=== PATIENT | male | born 1985 | race African-American/Black ===

== ENCOUNTER 2019-01-13 21:21 | Emergency (ER) | payer OTHER ==
[~2019-01-13] VITALS: Ht 180.3 cm; Wt 115.7 kg
[2019-01-13 21:27] VITALS: BP 110/72
--- NOTE | 2019-01-13 21:47 | PHYS DOC ---
Adult General Chief Complaint Chief Complaint: SHOULDER INJURY HPI HPI Patient is a 33 year old male with no significant medical history who presents to the ED today complaining of moderate right shoulder pain that began today after he fell playing football patient denies any loss of consciousness. Desc ribes the pain as throbbing and worse on range of motion. He states the pain is radiating to the neck. (MIKE BRANTLEY APRN) Review of Systems Review of Systems Constitutional: Denies fever or chills [] Musculoskeletal: Reports right shoulder pain Integument: Denies rash or skin lesions [] Neurologic: Denies headache, focal weakness or sensory changes [] All other systems were reviewed and found to be within normal limits, except as documented in this note. (MIKE BRANTLEY APRN) Current Medications Current Medications Current Medications Medications (Trade) Dose Ordered Sig/Amina Start Time Stop Time Status Last Admin Dose Admin Acetaminophen/ Hydrocodone Bitart (Lortab 5/325) 2 tab 1X ONCE 01/13/19 22:30 01/13/19 22:31 DC 01/13/19 22:28 2 TAB Naproxen (Naprosyn) 500 mg 1X ONCE 01/13/19 22:30 01/13/19 22:31 DC 01/13/19 22:29 500 MG (ANT TSAI MD) Allergies Allergies Allergies Coded Allergies Type Severity Reaction Last Updated Verified No Known Drug Allergies 01/13/19 No (ANT TSAI MD) Physical Exam Physical Exam Constitutional: Well developed, well nourished, no acute distress, non-toxic appearance. [] Skin: Warm, dry, no erythema, no rash. [] Back: No tenderness, no CVA tenderness. [] Extremities: Right shoulder with no obvious deformity. Tenderness diffusely on the right anterior shoulder as well as clavicle. Full range of motion to the right shoulder. Adequate radial, medial, ulnar sensation to the right upper extremity. +2 right radial pulse. Cap refill less than 2 seconds the right fingers. Neurologic: Alert and oriented X 3, normal motor function, normal sensory function, no focal deficits noted. [] Psychologic: Affect normal, judgement normal, mood normal. [] (MIKE BRANTLEY APRN) Current Patient Data Vital Signs Vital Signs Date Time Temp Pulse Resp B/P (MAP) Pulse Ox O2 Delivery O2 Flow Rate FiO2 01/13/19 22:28 18 97 Room Air 01/13/19 21:27 98.0 97 110/72 (85) 98.0 (ANT TSAI MD) EKG EKG [] (MIKE BRANTLEY APRN) Radiology/Procedures Radiology/Procedures []PROCEDURE: SHOULDER 2+V RIGHT Three-view right shoulder dated 01/13/2019. No comparison available. Clinical data indication: Pain after injury. FINDINGS: 3 views right shoulder show normal bony alignment. No displaced fracture. No acute osseous or articular abnormality. Small corticated bone fragment near the AC joint could represent a remote ununited fracture or a knee dated ossification center. Proximal humerus is intact. IMPRESSION: No acute findings. Electronically signed by: Ifeanyi Webber MD (01/13/2019 9:50 PM) [facility] DICTATED and SIGNED BY: IFEANYI WEBBER MD DATE: 01/13/192149 (MIKE BRANTLEY APRN) Course & Med Decision Making Course & Med Decision Making Pertinent Labs and Imaging studies reviewed. (See chart for details) This is a 33-year-old male patient presented to the ED with right shoulder pain after falling playing football. No loss of consciousness. Right shoulder x-rays interpreted by radiologist are negative for any acute findings. Discharged with instructions to ice, elevate the affected extremity. Prescription for diclofenac and cyclobenzaprine as well as Medrol Dosepak provided. Provided orthopedic doctor for follow-up in one week if pain continues. (MIKE BRANTLEY APRN) Course & Med Decision Making Staff Physician Addendum: I was working in the ER during the course of this patient's visit. I was available for consultation as needed, but I was not directly involved in the care of this patient. (ANT TSAI MD) Dragon Disclaimer Dragon Disclaimer This electronic medical record was generated, in whole or in part, using a voice recognition dictation system. (MIKE BRANTLEY APRN) Departure Departure Impression: Primary Impression: Contusion of right shoulder Additional Impression: Fall from standing Disposition: 01 HOME, SELF-CARE Condition: STABLE (IsHe is not) Referrals: GUSTAVO GONSALEZ II, MD follow up in 1 week Patient Instructions: Contusion, [id number] Additional Instructions: You were evaluated for right shoulder contusion, your right shoulder x-rays are negative for any acute findings. Try to ice and elevate the extremity. Take the prescribed medications as ordered. Follow-up with your own doctor or the provided orthopedic doctor in one week if symptoms continue. Scripts Methylprednisolone (MEDROL) 4 Mg Tab.ds.pk 1 PKG PO UD, #1 PKG Prov: MIKE BRANTLEY BOB 01/13/19 Cyclobenzaprine Hcl (CYCLOBENZAPRINE HCL) 10 Mg Tablet 1 TAB PO TID, #30 TAB Prov: JULIANNABlasMIKE APRN 01/13/19 Diclofenac Sodium (DICLOFENAC SODIUM) 50 Mg Tablet.dr 1 TAB PO BID, #20 TAB 0 Refills Prov: MIKE BRANTLEY BOB 01/13/19 Problem Qualifiers Primary Impression: Contusion of right shoulder Encounter type: initial encounter Qualified Codes: S40.011A - Contusion of right shoulder, initial encounter Additional Impression: Fall from standing Encounter type: initial encounter Qualified Codes: W19.XXXA - Unspecified fall, initial encounter MIKE BRANTLEY APRN Jan 13, 2019 21:47 ANT TSAI MD Jan 14, 2019 05:03
--- NOTE | 2019-01-13 21:52 | RAD ---
Three-view right shoulder dated 01/13/2019. No comparison available. Clinical data indication: Pain after injury. FINDINGS: 3 views right shoulder show normal bony alignment. No displaced fracture. No acute osseous or articular abnormality. Small corticated bone fragment near the AC joint could represent a remote ununited fracture or a knee dated ossification center. Proximal humerus is intact. IMPRESSION: No acute findings. Electronically signed by: Ifeanyi Webber MD (01/13/2019 9:50 PM) [facility]
[2019-01-13] MEDS ORDERED: DICL50TA4 PO (22:13)
[2019-01-13] MEDS ORDERED: CYCL10TA2 PO (22:13)
[2019-01-13] MEDS ORDERED: METH4TAB2 PO (22:13)
[2019-01-13] MEDS ORDERED: NAPROXEN 500 MG TABLET PO ONE (22:30)
[2019-01-13] MEDS ORDERED: HYDROcodone/APAP 5/325MG 1 TAB TABLET PO ONE (22:30)
== END 2019-01-13 22:33 | disposition home or self-care (01) ==
LOC: ER 21:21
DX: S40.011A Contusion of right shoulder, initial encounter (principal); W18.39XA Other fall on same level, initial encounter; Y93.61 Activity, american tackle football; Y92.89 Other specified places as the place of occurrence of the external cause; Y99.8 Other external cause status
CPT/HCPCS: 73030; 99284